=== PATIENT | female | born 1955 | race Caucasian/White ===

== ENCOUNTER → 2021-08-13 11:32 | Outpatient (CLI) | payer OTHER, SELFPAY ==
[2021-08-13 13:36] LABS: COVID19 -Nasal RAPID Negative (Negative)
== END ==
PROVIDERS: Visit Provider Surgery
DX: Z20.822 Contact with and (suspected) exposure to COVID-19 (principal); Z01.812 Encounter for preprocedural laboratory examination
CPT/HCPCS: 87635; C9803

== ENCOUNTER 2021-08-16 14:05 | Day surgery (SDC) | payer OTHER, SELFPAY ==
[2021-08-16] VITALS (7 sets, daily range): BP systolic 78–141; BP diastolic 57–67; PULSE 52–68; RESP 12–18; TEMP 36.2–36.9; O2SAT 98–99; BMI 21.6
--- NOTE | 2021-08-16 | PATH_ITS ---
[facility] Accession Number: [id number] . 01 Material submitted: . PART A: cecum - CECAL FOLDS PART B: colon - RANDOM COLON . 01 Diagnosis: A-B: Cecal Folds, Random Colon, Biopsies: Colonic mucosa with a mildly abnormal subepithelial collagen layer, suggestive of collagenous colitis. Negative for active inflammation, granulomas, dysplasia, and malignancy. . . [facility] 08/19/2021 1340 Local . 01 Electronically signed: . Golria Fortune MD, Pathologist NPI- [id number] . 01 Gross description: . Part A: CECAL FOLDS: Received in formalin are 2 fragment(s) of landis, soft tissue measuring 0.3 x 0.3 x 0.2 cm to 0.3 x 0.2 x 0.1 cm submitted entirely in 1 cassette(s) Part B: RANDOM COLON: Received in formalin are 2 fragment(s) of landis, soft tissue measuring 0.3 x 0.3 x 0.1 cm to 0.2 x 0.2 x 0.1 cm submitted entirely in 1 cassette(s) /QBJ 08/17/2021 0708 Local . 01 Microscopic: . A-B. Trichrome stains were performed on Blocks A and B in order to evaluate the subepithelial collagen layer. The trichrome stains highlight a mildly abnormal subepithelial collagen layer in each part, including occasional entrapped capillaries. The control stain showed appropriate reactivity. . 01 Pathologist provided ICD-10: R19.7 . 01 CPT . 912030, 619743, 100208, [id number] Specimen Comment: A courtesy copy of this report has been sent to [phone] Performed at: 01 [facility] [address] [place] [address] [id number] MD Darren Underwood MD Phone: [phone]
[2021-08-16] MEDS: SODIUM CHLORIDE 0.9% 1,000 ML 84 ML IV (15:34)
--- NOTE | 2021-08-16 16:18 | PM.HP.1 ---
History of Present Illness History of Present Illness Date Patient Seen: 08/16/21 Time Patient Seen: 16:18 Chief complaint: SDC Narrative: I reviewed the note by Dr. Valerio. Diarrhea has resolved. She is indicated for colon cancer screening. Patient History Family & Social History Social History: household members family Tobacco & Substance use: Smoking Status Former smoker alcohol intake current alcohol intake frequency holiday/special occasion Substance Use Type does not use Meds Home Medications and Allergies Home Medications Medication Instructions Recorded Confirmed Type erenumab-aooe 140 mg/mL 140 ea SUBCUT QMONTH 08/16/21 08/16/21 History subcutaneous auto-injector (Aimovig Autoinjector) methylphenidate HCl 5 mg tablet 5 mg PO USEASDIRECTD PRN Fatigue 08/16/21 08/16/21 History sumatriptan succinate 6 mg/0.5 mL 6 mg SUBCUT USEASDIRECTD PRN 08/16/21 08/16/21 History subcutaneous pen injector (Imitrex Headache STATdose Pen) Allergies Allergy/AdvReac Type Severity Reaction Status Date / Time No Known Drug Allergies Allergy Verified 08/16/21 15:22 Review of Systems Review of Systems ROS: Yes All systems reviewed with the patient and are negative except as otherwise documented Exam Vital Signs (past 8 hours): - 08/16/21 15:10 Temperature 97.2 F L Pulse Rate 68 Respiratory Rate 18 Blood Pressure 141/67 H Pulse Oximetry 98 Oxygen Delivery Method Room Air Oxygen Delivery Method Room Air Const General: cooperative HENMT Head: normal to inspection Eyes General: appearance normal, both eyes and all related structures Neck Neck: normal visual inspection Chest Chest: normal inspection of the chest Resp Effort & Inspection: normal respiratory effort Cardio Rate: regular rate GI Inspection: normal to inspection Skin General: no rashes or lesions noted Neuro General: patient alert and patient awake Extrem General: normal to inspection and no pedal edema Psych Appearance: grossly normal Assessment & Plan Assessment & Plan narrative: 65-year-old female with a recent history of unexplained diarrhea. This has resolved by her description at this point but she is due for colon cancer screening. Colonoscopy is planned for today and biopsies will be acquired if everything looks normal for exclusion of microscopic disease. Time Spent With Patient Critical Care time: I spent a total of [] minutes of critical care time on this patient's care today; this time is exclusive of procedural time.
--- NOTE | 2021-08-16 16:20 | PM.PREOP ---
Pre-operative Note COVID-19 COVID-19 status: Negative Result date/Date tested (Pos, Neg/Pending): 08/13/21 Criteria for continued procedure: Possibility delay results in more complex future surgery or treatment Interval Note History & Physical reviewed/Exam performed by Physician: Yes Changes to H&P: Yes ASA Class (for procedural sedation): II
--- NOTE | 2021-08-16 17:11 | P.OP.COLON_ITS ---
Operative Date/Time/Diagnoses Date of procedure: 08/16/21 Time of procedure: 17:13 Pre-op diagnosis: Primary indication is Unexplained diarrhea. Secondary is Colon cancer screening Post-op diagnosis: same Procedure & Clinicians Study performed: Colonoscopy with biopsies Same procedure as scheduled: Yes Indications: Primary reason diarrhea. Secondary reason colon cancer screening Surgeon: Augusto Lala Procedure Notes SCOAP/Timeout: Done Procedure in detail: After the risks and benefits were explained, written and verbal informed consent was obtained. The patient was brought into the procedure room and placed into the left lateral decubitus position. Please see nurse retail sales associate notes for sedation details. Digital rectal examination was accomplished. The scope was introduced into the patient and advanced under direct visualization to the cecum as identified by the appendiceal orifice and ileocecal valve. The scope was slowly withdrawn to carefully examine the mucosa for any defects or lesions. Comprehensive imaging was accomplished throughout the rectum including the dentate line. The colon was decompressed, the scope was then removed from the patient who tolerated the procedure well. Bowel prep was fair; copious amounts of irrigation and suction were required to render this adequate Pediatric colonoscope Scope withdrawal time: 12 minutes Sedation minutes: 18 Complications: none Impression: There was some diverticulosis in the sigmoid. There were several areas of r etained stool debris semi liquid in nature requiring copious irrigation and suction for adequate mucosal exam. I did not see any obvious significant polyps. There were a few diminutive hyperplastic appearing polyps in the rectosigmoid that were left alone. I took random biopsies from the colon for exclusion of microscopic colitis. Brief limited looks into the terminal aspect of terminal ileum demonstrated normal villi. The fold opposite the ileocecal valve opening in the cecum bordering the ascending colon appeared slightly irregular and I took biopsies from this fold to exclude any adenomatous features. If this is adenomatous, then it did not appear amenable to endoscopic resection as this abnormality appeared to stricture over a couple of folds and would be perhaps 3 cm in greatest dimension. Endoscopic diagnosis 1. Irregular fold in the cecum-biopsied 2. Otherwise visually unremarkable colonoscopy to cecum and terminal ileum Post-procedure Plan for aftercare: 1. Await histopathology. 2. Fiber based bowel regimen for soft regular stools is recommended. Disposition: PACU
--- NOTE | 2021-08-16 17:34 | SUR.PHASEII ---
Spoke with Reynaldo FRANKEL. Pt with SR/SB with PAC in procedure. no new orders
== END 2021-08-16 17:52 | disposition home or self-care (01) ==
PROVIDERS: PCP Registered Nurse; Referring Provider Internal Medicine Gastroenterology; Visit Provider Internal Medicine Gastroenterology
PROC: 0DJD8ZZ Inspection of Lower Intestinal Tract, Via Natural or Artificial Opening Endoscopic (ICD-10-PCS; CPT 45378; principal; 2021-08-16 15:30)
DX: R19.7 Diarrhea, unspecified (principal); K57.30 Diverticulosis of large intestine without perforation or abscess without bleeding; K63.5 Polyp of colon
CPT/HCPCS: 45380; J2704